=== PATIENT | female | born 1960 | race Caucasian/White ===

== ENCOUNTER 2018-04-01 14:02 | Emergency (ER) | payer OTHER ==
[2018-04-01] MEDS ORDERED: Acetaminophen/HYDROcodone 325-5 MG Tab PO ONE (14:57)
--- NOTE | 2018-04-01 16:00 | EDM.PDOC ---
ED HPI GENERAL MEDICAL PROBLEM - General Chief Complaint: Genitourinary Problem Stated Complaint: PAIN IN VAGINAL AREA Time Seen by Provider: 04/01/18 14:37 Source of Information: Reports: Patient History Limitations: Reports: No Limitations - History of Present Illness INITIAL COMMENTS - FREE TEXT/NARRATIVE: The patient presents with a possible abscess in the genital area. This has been an ongoing problems. She recently popped an abscess and she was put on an antibiotic. She thinks it is coming back. She has pain to the pubic area. She has no fever but she has chills. She has no some abdominal pain. She also has some frequency with urination. Onset: Gradual Duration: Day(s): Location: Reports: Pelvis Quality: Reports: Burning Severity: Moderate Improves with: Reports: None Worsens with: Reports: None Associated Symptoms: Reports: Fever/Chills. Denies: Chest Pain, Cough, Headaches, Nausea/Vomiting, Shortness of Breath Groin Pain Score (Numeric/FACES): 7 - Related Data Allergies Allergy/AdvReac Type Severity Reaction Status Date / Time No Known Allergies Allergy Verified 04/01/18 14:27 Home Meds: Home Meds Doxycycline [Vibramycin] 100 mg PO BID #20 cap 04/01/18 [Rx] Past Medical History Musculoskeletal History: Reports: Arthritis, Back Pain, Chronic, Fibromyalgia Endocrine/Metabolic History: Reports: Hypothyroidism - Past Surgical History GI Surgical History: Reports: Cholecystectomy Female Surgical History: Reports: Oophorectomy Endocrine Surgical History: Reports: Thyroidectomy Social & Family History - Tobacco Use Smoking Status *Q: Current Every Day Smoker Years of Tobacco use: 40 Packs/Tins Daily: 1 - Caffeine Use Caffeine Use: Reports: Coffee - Recreational Drug Use Recreational Drug Use: No ED ROS GENERAL - Review of Systems Review Of Systems: See Below Constitutional: Reports: Chills HEENT: Reports: No Symptoms Respiratory: Reports: No Symptoms Cardiovascular: Reports: No Symptoms Endocrine: Reports: No Symptoms GI/Abdominal: Reports: No Symptoms : Reports: Other (pubic pain) Musculoskeletal: Reports: No Symptoms ED EXAM, GI/ABD - Physical Exam Exam: See Below Exam Limited By: No Limitations General Appearance: Alert, No Apparent Distress Ears: Normal External Exam Nose: Normal Inspection Head: Atraumatic, Normocephalic Neck: Normal Inspection Respiratory/Chest: No Respiratory Distress, Lungs Clear, Normal Breath Sounds Cardiovascular: Regular Rate, Rhythm, No Edema, No Murmur GI/Abdominal Exam: Soft, Non-Tender, No Organomegaly, No Mass (Female) Exam: Other (erythema and some edema to the pubic area) Back Exam: Paraspinal Tenderness Course - Vital Signs Last Recorded V/S: Last Vital Signs Temp 97.5 F 04/01/18 14:23 Pulse 57 L 04/01/18 14:23 Resp 18 04/01/18 14:23 BP 144/87 H 04/01/18 14:23 Pulse Ox 97 04/01/18 14:23 - Orders/Labs/Meds Labs: Laboratory Tests 04/01/18 04/01/18 04/01/18 Range/Units 14:35 15:05 15:05 WBC 8.59 (3.98-10.04) K/mm3 RBC 5.27 H (3.98-5.22) M/mm3 Hgb 14.2 (11.2-15.7) gm/L Hct 44.3 (34.1-44.9) % MCV 84.1 (79.4-94.8) fl MCH 26.9 (25.6-32.2) pg MCHC 32.1 L (32.2-35.5) g/dl RDW Std Deviation 48.5 H (36.4-46.3) fL Plt Count 315 (182-369) K/mm3 MPV 9.6 (9.4-12.3) fl Neut % (Auto) 64.3 (34.0-71.1) % Lymph % (Auto) 25.1 (19.3-51.7) % [place] % (Auto) 9.4 (4.7-12.5) % Eos % (Auto) 1.0 (0.7-5.8) Baso % (Auto) 0.1 (0.1-1.2) % Neut # (Auto) 5.51 (1.56-6.13) K/mm3 Lymph # (Auto) 2.16 (1.18-3.74) K/mm3 Castro # (Auto) 0.81 H (0.24-0.36) K/mm3 Eos # (Auto) 0.09 (0.04-0.36) K/mm3 Baso # (Auto) 0.01 (0.01-0.08) K/mm3 Sodium 142 (136-145) mEq/L Potassium 3.6 (3.5-5.1) mEq/L Chloride 108 H (98-107) mEq/L Carbon Dioxide 25 (21-32) mEq/L Anion Gap 12.6 (5-15) BUN 14 (7-18) mg/dL Creatinine 1.0 (0.55-1.02) mg/dL Est Cr Clr Drug Dosing 53.60 mL/min Estimated GFR (MDRD) 57 (>60) mL/min BUN/Creatinine Ratio 14.0 (14-18) Glucose 99 (74-106) mg/dL Calcium 8.8 (8.5-10.1) mg/dL Total Bilirubin 0.4 (0.2-1.0) mg/dL AST 22 (15-37) U/L ALT 34 (14-59) U/L Alkaline Phosphatase 117 H (46-116) U/L C-Reactive Protein 1.8 H* (<1.0) mg/dL Total Protein 7.2 (6.4-8.2) g/dl Albumin 3.7 (3.4-5.0) g/dl Globulin 3.5 gm/dL Albumin/Globulin Ratio 1.1 (1-2) Urine Color Light yellow (Yellow) Urine Appearance Clear (Clear) Urine pH 7.0 (5.0-8.0) Ur Specific [place] 1.020 (1.005-1.030) Urine Protein Negative (Negative) Urine Glucose (UA) Negative (Negative) Urine Ketones Negative (Negative) Urine Occult Blood Trace-lysed H (Negative) Urine Nitrite Negative (Negative) Urine Bilirubin Negative (Negative) Urine Urobilinogen 1.0 (0.2-1.0) Ur Leukocyte Esterase Negative (Negative) Urine RBC 0-5 (0-5) /hpf Urine WBC Not seen (0-5) /hpf Ur Epithelial Cells 0-5 (0-5) /hpf Urine Bacteria Not seen (FEW) /hpf Urine Mucus Not seen (FEW) /hpf Meds: Medications Discontinued Medications Generic Name Dose Route Start Last Admin Trade Name Freq PRN Reason Stop Dose Admin Hydrocodone Bitart/Acetaminophen 2 tab 04/01/18 14:57 04/01/18 15:05 [place] 325-5 Mg PO 04/01/18 14:58 2 tab ONETIME ONE Administration - Re-Assessments/Exams Free Text/Narrative Re-Assessment/Exam: 04/01/18 15:55 Her UA shows no UTI. Her CBC and CMP look good. Her CRP was slightly elevated at 1.8. She has a cellulitis but no abscess. I will get her on some doxycycline. I did give her some hydrocodone for the pain while she is here. Departure - Departure Time of Disposition: 15:40 Disposition: Home, Self-Care 01 Condition: Good Clinical Impression: Cellulitis of pubic region - Discharge Information Prescriptions: Doxycycline [Vibramycin] 100 mg PO BID #20 cap Referrals: PCP,Not In Area [Primary Care Provider] - Additional Instructions: Take the doxycycline 1 pill 2 times per day for 10 days. Put warm compresses on the area 3 times per day for 5 days. Drink plenty of fluids. Please return if you are worse.
[2018-04-01] MEDS ORDERED: HYDROmorphone 0.5 MG/0.5 ML SYRINGE IM ONE (16:01)
== END 2018-04-01 16:06 | disposition home or self-care (01) ==
LOC: JD.ED 14:02
DX: L03.314 Cellulitis of groin (principal); F17.210 Nicotine dependence, cigarettes, uncomplicated
CPT/HCPCS: 36415; 80053; 81001; 85025; 86140; 96372; 99284; A9270; J1170; 99283

== ENCOUNTER 2018-07-23 10:21 | Emergency (ER) | payer OTHER ==
[2018-07-23] MEDS ORDERED: Sodium Chloride 0.9% 10 ML Syringe FLUSH PRN (10:55)
[2018-07-23] MEDS ORDERED: Prochlorperazine 10 MG/2 ML SDV IVPUSH ONE (10:56)
[2018-07-23] MEDS ORDERED: diphenhydrAMINE 50 MG/ML SDV IVPUSH ONE (10:57)
[2018-07-23] MEDS ORDERED: Ketorolac 30 MG/ML SDV IVPUSH ONE (10:57)
[2018-07-23] MEDS ORDERED: Lidocaine 1% with EPINEPHrine 1:100,000 20 ML MDV INJECT ONE (10:57)
[2018-07-23] MEDS ORDERED: Lidocaine/EPINEPHrine/Tetracaine Soln 1 ML TOP ONE (10:58)
--- NOTE | 2018-07-23 13:16 | EDM.PDOC ---
ED HPI GENERAL MEDICAL PROBLEM - General Chief Complaint: Skin Complaint Stated Complaint: VAGINAL SKIN COMPLAINT Time Seen by Provider: 07/23/18 10:48 Source of Information: Reports: Patient History Limitations: Reports: No Limitations - History of Present Illness INITIAL COMMENTS - FREE TEXT/NARRATIVE: The patient presents with an abscess in her groin area. This has been an ongoing problem for years and she feels like it is infected again. She has no fever, chills, cough, chest pain or abdominal pain. She does have a headache. This has been going on daily for a few weeks. She has a history of migraines but her usual meds are not helping. She has no numbness or weakness. Onset: Gradual Duration: Week(s): Location: Reports: Head, Pelvis Quality: Reports: Sharp Severity: Severe Improves with: Reports: None Worsens with: Reports: None Associated Symptoms: Reports: Headaches. Denies: Confusion, Chest Pain, Fever/ Chills, Nausea/Vomiting, Shortness of Breath Treatments ICE GRINDER: Reports: Other (see below) Other Treatments ICE GRINDER: hot pack Right Groin Pain Score (Numeric/FACES): 7 - Related Data Allergies Allergy/AdvReac Type Severity Reaction Status Date / Time No Known Allergies Allergy Verified 07/23/18 10:36 Home Meds: Home Meds Albuterol [Ventolin HFA] 2 inh PO DAILY PRN MDD 6 07/23/18 [History] Diazepam [Valium] 5 mg PO TID PRN #20 tablet 07/23/18 [Rx] Doxycycline [Vibramycin] 100 mg PO BID #20 cap 07/23/18 [Rx] Escitalopram [Lexapro] 20 mg PO DAILY 07/23/18 [History] Fluticasone/Vilanterol [Breo Ellipta 200-25 Mcg INH] 1 inh PO DAILY 07/23/18 [ History] Hydrocodone/Acetaminophen [Hydrocodon-Acetaminophen 5-325] 1 tab PO QID PRN MDD 4 tabs 07/23/18 [History] Pregabalin [Lyrica] 300 mg PO TID 07/23/18 [History] Terbinafine [LamISIL] 250 mg PO DAILY 07/23/18 [History] Topiramate 100 mg PO BID PRN MDD 2 tabs 07/23/18 [History] Past Medical History Cardiovascular History: Reports: Hypertension Respiratory History: Reports: Asthma, COPD, SOB Musculoskeletal History: Reports: Arthritis, Back Pain, Chronic, Fibromyalgia Endocrine/Metabolic History: Reports: Hypothyroidism - Past Surgical History GI Surgical History: Reports: Cholecystectomy Female Surgical History: Reports: Oophorectomy Endocrine Surgical History: Reports: Thyroidectomy Social & Family History - Tobacco Use Smoking Status *Q: Current Every Day Smoker Years of Tobacco use: 45 Packs/Tins Daily: 0.5 Second Hand Smoke Exposure: No - Caffeine Use Caffeine Use: Reports: Coffee ED ROS GENERAL - Review of Systems Review Of Systems: See Below Constitutional: Reports: No Symptoms HEENT: Reports: No Symptoms Respiratory: Reports: No Symptoms Cardiovascular: Reports: No Symptoms Endocrine: Reports: No Symptoms GI/Abdominal: Reports: No Symptoms : Reports: Other (Pupic abscess with pain and swelling) Musculoskeletal: Reports: No Symptoms Neurological: Reports: Headache ED EXAM, SKIN/RASH Exam: See Below Exam Limited By: No Limitations General Appearance: Alert, No Apparent Distress Ears: Normal External Exam Nose: Normal Inspection Head: Atraumatic, Normocephalic Neck: Normal Inspection Respiratory/Chest: No Respiratory Distress, Lungs Clear, Normal Breath Sounds Cardiovascular: Regular Rate, Rhythm, No Edema, No Murmur GI/Abdominal: Soft, Non-Tender, No Organomegaly, No Mass (Female) Exam: Other (Pubic abscess with arythema,edema and fluctuance) Back Exam: Normal Inspection Extremities: Normal Inspection ED SKIN PROCEDURES - I&D Site: pubis Skin Prep: Other (chlorprep) Local Anesthesia: Lidocaine: 1% with EPI (and let) Area Incised With: 11 Blade Drainage: Purulent, Bloody, Moderate Amount Probed to Break Up Loculations: Yes Packed With: 1/4 in. Iodoform Complications: No Progress/Comments: Cultures were obtained Course - Vital Signs Last Recorded V/S: Last Vital Signs Temp 96.6 F 07/23/18 10:28 Pulse 69 07/23/18 10:28 Resp 20 07/23/18 10:28 BP 155/87 H 07/23/18 10:28 Pulse Ox 97 07/23/18 10:28 - Orders/Labs/Meds Orders: Active Orders 24 hr Category Date Time Status Peripheral IV Care [RC] . DIRECTED Care 07/23/18 10:56 Active Head wo Cont [CT] Stat Exams 07/23/18 10:58 Taken Sodium Chloride 0.9% [Saline Flush] Med 07/23/18 10:55 Active 10 ml FLUSH ASDIRECTED PRN ED Antiemetic Medication Reflex [OM.PC] Stat Oth 07/23/18 10:55 Ordered Peripheral IV Insertion Adult [OM.PC] Stat Ot 07/23/18 10:55 Ordered Medication Orders Sodium Chloride (Saline Flush) 10 ml FLUSH ASDIRECTED PRN PRN Reason: Keep Vein Open Last Admin: 07/23/18 11:12 Dose: 10 ml Labs: Laboratory Tests 07/23/18 07/23/18 Range/Units 11:45 11:45 WBC 9.30 (3.98-10.04) K/mm3 RBC 5.23 H (3.98-5.22) M/mm3 Hgb 14.1 (11.2-15.7) gm/L Hct 44.4 (34.1-44.9) % MCV 84.9 (79.4-94.8) fl MCH 27.0 (25.6-32.2) pg MCHC 31.8 L (32.2-35.5) g/dl RDW Std Deviation 49.8 H (36.4-46.3) fL Plt Count 297 (182-369) K/mm3 MPV 9.4 (9.4-12.3) fl Neut % (Auto) 72.4 H (34.0-71.1) % Lymph % (Auto) 17.7 L (19.3-51.7) % [place] % (Auto) 8.2 (4.7-12.5) % Eos % (Auto) 1.4 (0.7-5.8) Baso % (Auto) 0.2 (0.1-1.2) % Neut # (Auto) 6.73 H (1.56-6.13) K/mm3 Lymph # (Auto) 1.65 (1.18-3.74) K/mm3 [place] # (Auto) 0.76 H (0.24-0.36) K/mm3 Eos # (Auto) 0.13 (0.04-0.36) K/mm3 Baso # (Auto) 0.02 (0.01-0.08) K/mm3 Sodium 140 (136-145) mEq/L Potassium 4.0 (3.5-5.1) mEq/L Chloride 107 (98-107) mEq/L Carbon Dioxide 26 (21-32) mEq/L Anion Gap 11.0 (5-15) BUN 15 (7-18) mg/dL Creatinine 1.2 H (0.55-1.02) mg/dL Est Cr Clr Drug Dosing 44.13 mL/min Estimated GFR (MDRD) 46 (>60) mL/min BUN/Creatinine Ratio 12.5 L (14-18) Glucose 95 (74-106) mg/dL Calcium 8.6 (8.5-10.1) mg/dL Total Bilirubin 0.4 (0.2-1.0) mg/dL AST 16 (15-37) U/L ALT 20 (14-59) U/L Alkaline Phosphatase 137 H (46-116) U/L C-Reactive Protein 3.4 H* (<1.0) mg/dL Total Protein 7.5 (6.4-8.2) g/dl Albumin 3.6 (3.4-5.0) g/dl Globulin 3.9 gm/dL Albumin/Globulin Ratio 0.9 L (1-2) Meds: Medications Generic Name Dose Route Start Last Admin Trade Name Freq PRN Reason Stop Dose Admin Sodium Chloride 10 ml 07/23/18 10:55 07/23/18 11:12 Saline Flush FLUSH 10 ml ASDIRECTED PRN Administration Keep Vein Open Discontinued Medications Generic Name Dose Route Start Last Admin Trade Name Freq PRN Reason Stop Dose Admin Diazepam 5 mg 07/23/18 12:36 07/23/18 12:43 Valium IVPUSH 07/23/18 12:37 5 mg ONETIME ONE Administration Diphenhydramine HCl 50 mg 07/23/18 10:57 07/23/18 11:19 Benadryl IVPUSH 07/23/18 10:58 50 mg ONETIME ONE Administration Ketorolac Tromethamine 30 mg 07/23/18 10:57 07/23/18 11:21 Toradol IVPUSH 07/23/18 10:58 30 mg ONETIME ONE Administration Lidocaine/Epinephrine 20 ml 07/23/18 10:57 07/23/18 11:12 Xylocaine 1% With Epinephrine 1:100,000 INJECT 07/23/18 10:58 20 ml ONETIME ONE Administration Lidocaine/Tetracaine 1 ml 07/23/18 10:58 07/23/18 11:13 Let Alejandro TOP 07/23/18 10:59 1 ml ONETIME ONE Administration Prochlorperazine Edisylate 10 mg 07/23/18 10:56 07/23/18 11:17 Compazine IVPUSH 07/23/18 10:57 10 mg ONETIME ONE Administration - Re-Assessments/Exams Free Text/Narrative Re-Assessment/Exam: 07/23/18 13:15 I ordered an IV saline lock, compazine 10mg IV, toradol 30mg IV, benadryl 50mg IV, labs and a CT of her head. The CT did not show any acute changes. Her CBC looks good. Her creatinine was slightly elevated at 1.2. Her CRP was elevated at 3.4. 07/23/18 13:17 I I&D the abscess. I will get her on an antibiotic and while she was here she had stomach muscle cramps. I gave her some valium and that helped. Her headache is gone now. Departure - Departure Time of Disposition: 13:20 Disposition: Home, Self-Care 01 Condition: Good Clinical Impression: Cellulitis and abscess of trunk, Spasm of abdominal muscles Headache Qualifiers: Headache type: unspecified Headache chronicity pattern: chronic headache Intractability: not intractable Qualified Code(s): R51 - Headache - Discharge Information *PRESCRIPTION DRUG MONITORING PROGRAM REVIEWED*: No *COPY OF PRESCRIPTION DRUG MONITORING REPORT IN PATIENT [place]: No Prescriptions: Diazepam [Valium] 5 mg PO TID PRN #20 tablet PRN Reason: Pain Doxycycline [Vibramycin] 100 mg PO BID #20 cap Referrals: PCP,None [Primary Care Provider] - Royce Dwyer MD [Physician] - 1 Week Additional Instructions: Take the doxycycline 2 times per day for 10 days. Take the valium 3 times per day as needed for stomach muscle contractions. Follow up with Dr Dwyer. Please return if you are worse. - My Orders Last 24 Hours: My Active Orders 07/23/18 10:55 Sodium Chloride 0.9% [Saline Flush] 10 ml FLUSH ASDIRECTED PRN ED Antiemetic Medication Reflex [OM.PC] Stat Peripheral IV Insertion Adult [OM.PC] Stat 07/23/18 10:56 Peripheral IV Care [RC] . DIRECTED 07/23/18 10:58 Head wo Cont [CT] Stat - Assessment/Plan Last 24 Hours: My Active Orders 07/23/18 10:55 Sodium Chloride 0.9% [Saline Flush] 10 ml FLUSH ASDIRECTED PRN ED Antiemetic Medication Reflex [OM.PC] Stat Peripheral IV Insertion Adult [OM.PC] Stat 07/23/18 10:56 Peripheral IV Care [RC] . DIRECTED 07/23/18 10:58 Head wo Cont [CT] Stat
--- NOTE | 2018-07-25 07:13 | CT ---
Head CT Technique: Multiple axial sections through the brain were obtained. Intravenous contrast was not utilized. Comparison: No prior intracranial imaging. Findings: Ventricles along with basal cisterns and sulci over the convexities are within normal limits for the patient's age. No abnormal parenchymal densities are seen. No evidence of intracranial hemorrhage. No midline shift or mass effect is seen. Visualized sinuses are clear. No acute calvarial abnormality is appreciated. Impression: 1. Nothing acute is seen on noncontrast head CT study. Diagnostic code #1 I agree with preliminary report from [facility], finalized on 07/23/18, 1:25 PM Central Time
== END 2018-07-23 13:40 | disposition home or self-care (01) ==
LOC: JD.ED 10:21
DX: L02.214 Cutaneous abscess of groin (principal); L03.314 Cellulitis of groin; M62.838 Other muscle spasm; R51 Headache; I10 Essential (primary) hypertension; E03.9 Hypothyroidism, unspecified; Z79.899 Other long term (current) drug therapy; F17.210 Nicotine dependence, cigarettes, uncomplicated
CPT/HCPCS: 10061; 36415; 70450; 80053; 85025; 86140; 87075; 87205; 96374; 96375; 99284; A9270; J0780; J1200; J1885; J3360; J7050; 10060

== ENCOUNTER 2019-01-20 15:02 | Emergency (ER) | payer MEDICARE, MEDICAID ==
--- NOTE | 2019-01-20 15:21 | EDM.PDOC ---
ED HPI GENERAL MEDICAL PROBLEM - General Chief Complaint: General Stated Complaint: NAUSEA Time Seen by Provider: 01/20/19 15:20 Source of Information: Reports: Patient History Limitations: Reports: No Limitations - History of Present Illness INITIAL COMMENTS - FREE TEXT/NARRATIVE: The patient presents with a cough, congestion, runny nose, fever, chills, headache and neck pain. This has been an on going problem for over the month. She has been trying over the counter meds but nothing is helping. She has COPD and she has been using her inhalers. She has lost her voice with the above symptoms. She has a sore throat. She has no chest pain. She does have shortness of breath. She has nausea and vomiting. She has some diarrhea at times. She has no dysuria. Onset: Gradual Duration: Week(s): (6) Location: Reports: Head, Neck Quality: Reports: Sharp Severity: Moderate Improves with: Reports: None Worsens with: Reports: None Associated Symptoms: Reports: Cough, Fever/Chills, Headaches, Nausea/Vomiting, Shortness of Breath. Denies: Chest Pain Headache Pain Score (Numeric/FACES): 7 - Related Data Allergies Allergy/AdvReac Type Severity Reaction Status Date / Time No Known Allergies Allergy Verified 07/23/18 10:36 Home Meds: Home Meds Albuterol [Ventolin HFA] 2 inh PO DAILY PRN MDD 6 07/23/18 [History] Doxycycline [Vibramycin] 100 mg PO BID #20 cap 07/23/18 [Rx] Escitalopram [Lexapro] 20 mg PO DAILY 07/23/18 [History] Fluticasone/Vilanterol [Breo Ellipta 200-25 Mcg INH] 1 inh PO DAILY 07/23/18 [ History] Pregabalin [Lyrica] 300 mg PO TID 07/23/18 [History] Terbinafine [LamISIL] 250 mg PO DAILY 07/23/18 [History] Topiramate 100 mg PO BID PRN MDD 2 tabs 07/23/18 [History] Azithromycin [Zithromax] 250 mg PO DAILY #6 tab 01/20/19 [Rx] Codeine/Promethazine [Phenergan with Codeine] 5 - 10 ml PO Q6HR PRN #240 ml [Rx] Cyclobenzaprine [Flexeril] 10 mg PO TID PRN #20 tab 01/20/19 [Rx] Pantoprazole Sodium [Protonix] 40 mg PO DAILY 01/20/19 [History] Past Medical History Cardiovascular History: Reports: Hypertension Respiratory History: Reports: Asthma, COPD, SOB Musculoskeletal History: Reports: Arthritis, Back Pain, Chronic, Fibromyalgia Endocrine/Metabolic History: Reports: Hypothyroidism - Past Surgical History GI Surgical History: Reports: Cholecystectomy Female Surgical History: Reports: Oophorectomy Endocrine Surgical History: Reports: Thyroidectomy Social & Family History - Tobacco Use Smoking Status *Q: Current Every Day Smoker Years of Tobacco use: 40 Packs/Tins Daily: 0.2 - Caffeine Use Caffeine Use: Reports: Coffee, Soda - Recreational Drug Use Recreational Drug Use: No ED ROS GENERAL - Review of Systems Review Of Systems: See Below Constitutional: Reports: Fever, Chills HEENT: Reports: Other (Congestion and runny nose) Respiratory: Reports: Shortness of Breath, Cough Cardiovascular: Reports: No Symptoms Endocrine: Reports: No Symptoms GI/Abdominal: Reports: Diarrhea, Nausea, Vomiting. Denies: Abdominal Pain : Reports: No Symptoms Musculoskeletal: Reports: No Symptoms ED EXAM, GENERAL - Physical Exam Exam: See Below Exam Limited By: No Limitations General Appearance: Alert, No Apparent Distress Ears: Normal External Exam Nose: Normal Inspection Throat/Mouth: Normal Inspection Head: Atraumatic, Normocephalic Neck: Tender Lateral Respiratory/Chest: No Respiratory Distress, Lungs Clear, Normal Breath Sounds Cardiovascular: Regular Rate, Rhythm, No Edema, No Murmur GI/Abdominal: Soft, Non-Tender, No Organomegaly, No Mass Back Exam: Normal Inspection Extremities: Normal Inspection Neurological: Alert, Oriented, No Motor/Sensory Deficits Course - Vital Signs Last Recorded V/S: Last Vital Signs Temp 97.5 F 01/20/19 15:16 Pulse 89 01/20/19 15:16 Resp 20 01/20/19 15:16 BP 153/86 H 01/20/19 15:16 Pulse Ox 95 01/20/19 15:50 - Orders/Labs/Meds Orders: Active Orders 24 hr Category Date Time Status Cardiac Monitoring [RC] . DIRECTED Care 01/20/19 15:32 Active Oxygen Therapy [RC] PRN Care 01/20/19 15:32 Active Peripheral IV Care [RC] . DIRECTED Care 01/20/19 15:33 Active RT Aerosol Therapy [RC] ASDIRECTED Care 01/20/19 15:34 Active Chest 2V [CR] Stat Exams 01/20/19 15:33 Taken Sodium Chloride 0.9% [Normal Saline] 1,000 ml Med 01/20/19 15:45 Active IV ASDIRECTED Sodium Chloride 0.9% [Saline Flush] Med 01/20/19 15:32 Active 10 ml FLUSH ASDIRECTED PRN Peripheral IV Insertion Adult [OM.PC] Stat Oth 01/20/19 15:32 Ordered Medication Orders Sodium Chloride (Normal Saline) 1,000 mls @ 125 mls/hr IV ASDIRECTED PRATIBHA Last Admin: 01/20/19 15:57 Dose: 125 mls/hr Sodium Chloride (Saline Flush) 10 ml FLUSH ASDIRECTED PRN PRN Reason: Keep Vein Open Last Admin: 01/20/19 15:59 Dose: 10 ml Labs: Laboratory Tests 01/20/19 01/20/19 Range/Units 15:42 15:42 WBC 10.71 H (3.98-10.04) K/mm3 RBC 5.59 H (3.98-5.22) M/mm3 Hgb 14.6 (11.2-15.7) gm/L Hct 45.6 H (34.1-44.9) % MCV 81.6 (79.4-94.8) fl MCH 26.1 (25.6-32.2) pg MCHC 32.0 L (32.2-35.5) g/dl RDW Std Deviation 50.3 H (36.4-46.3) fL Plt Count 376 H (182-369) K/mm3 MPV 9.5 (9.4-12.3) fl Neut % (Auto) 65.9 (34.0-71.1) % Lymph % (Auto) 22.5 (19.3-51.7) % [place] % (Auto) 9.6 (4.7-12.5) % Eos % (Auto) 1.4 (0.7-5.8) Baso % (Auto) 0.3 (0.1-1.2) % Neut # (Auto) 7.06 H (1.56-6.13) K/mm3 Lymph # (Auto) 2.41 (1.18-3.74) K/mm3 [place] # (Auto) 1.03 H (0.24-0.36) K/mm3 Eos # (Auto) 0.15 (0.04-0.36) K/mm3 Baso # (Auto) 0.03 (0.01-0.08) K/mm3 Sodium 147 H (136-145) mEq/L Potassium 3.7 (3.5-5.1) mEq/L Chloride 111 H (98-107) mEq/L Carbon Dioxide 24 (21-32) mEq/L Anion Gap 15.7 H (5-15) BUN 15 (7-18) mg/dL Creatinine 1.1 H (0.55-1.02) mg/dL Est Cr Clr Drug Dosing 48.14 mL/min Estimated GFR (MDRD) 51 (>60) mL/min BUN/Creatinine Ratio 13.6 L (14-18) Glucose 104 (74-106) mg/dL Calcium 8.4 L (8.5-10.1) mg/dL Total Bilirubin 0.3 (0.2-1.0) mg/dL AST 16 (15-37) U/L ALT 25 (14-59) U/L Alkaline Phosphatase 144 H (46-116) U/L C-Reactive Protein 2.3 H* (<1.0) mg/dL Total Protein 7.4 (6.4-8.2) g/dl Albumin 3.5 (3.4-5.0) g/dl Globulin 3.9 gm/dL Albumin/Globulin Ratio 0.9 L (1-2) Meds: Medications Generic Name Dose Route Start Last Admin Trade Name Freq PRN Reason Stop Dose Admin Sodium Chloride 1,000 mls @ 125 mls/hr 01/20/19 15:45 01/20/19 15:57 Normal Saline IV 125 mls/hr ASDIRECTED PRATIBHA Administration Sodium Chloride 10 ml 01/20/19 15:32 01/20/19 15:59 Saline Flush FLUSH 10 ml ASDIRECTED PRN Administration Keep Vein Open Discontinued Medications Generic Name Dose Route Start Last Admin Trade Name Freq PRN Reason Stop Dose Admin Albuterol/Ipratropium 3 ml 01/20/19 15:34 01/20/19 15:49 Duoneb 3.0-0.5 Mg/3 Ml NEB 01/20/19 15:35 3 ml ONETIME ONE Administration Hydromorphone HCl 1 mg 01/20/19 16:29 01/20/19 16:43 Dilaudid IVPUSH 01/20/19 16:30 1 mg ONETIME ONE Administration Ketorolac Tromethamine 30 mg 01/20/19 15:34 01/20/19 15:44 Toradol IVPUSH 01/20/19 15:35 30 mg ONETIME ONE Administration Ondansetron HCl 4 mg 01/20/19 15:39 01/20/19 15:44 Zofran IVPUSH 01/20/19 15:40 4 mg ONETIME ONE Administration - Re-Assessments/Exams Free Text/Narrative Re-Assessment/Exam: 01/20/19 15:42 I ordered an IV NS at 125mL/hr, zofran 4mg IV, toradol 30mg IV, duoneb, CT of her head, CXR and labs. 01/20/19 17:20 Her WBC was elevated at 10.71. Her Na was elevated at 147. Her anion gap is elevated at 15.7. Her creatinine was slightly elevated at 1.1. Her CRP was elevated. Her CT shows minimal sinus findings. Small finding within the periphery of the left cerebellar hemisphere which is felt to be old and therefore incidental. Nothing acute is appreciated on noncontrast head CT exam. Her CXR shows no infiltrate. She has bronchitis and sinusitis. I will get her on some doxycycline and something for her neck and cough. Departure - Departure Time of Disposition: 17:25 Disposition: Home, Self-Care 01 Condition: Good Clinical Impression: Bronchitis, Neck pain Sinusitis Qualifiers: Sinusitis location: unspecified location Chronicity: acute Recurrence: non- recurrent Qualified Code(s): J01.90 - Acute sinusitis, unspecified - Discharge Information *PRESCRIPTION DRUG MONITORING PROGRAM REVIEWED*: No *COPY OF PRESCRIPTION DRUG MONITORING REPORT IN PATIENT LAVERN: No Prescriptions: Codeine/Promethazine [Phenergan with Codeine] 5 - 10 ml PO Q6HR PRN #240 ml PRN Reason: Cough Azithromycin [Zithromax] 250 mg PO DAILY #6 tab Cyclobenzaprine [Flexeril] 10 mg PO TID PRN #20 tab PRN Reason: Pain Referrals: Kaylin Peterson MD [Primary Care Provider] - 1 Week Forms: ED Department Discharge Additional Instructions: Use the albuterol inhaler 2 puffs every 6 hours as needed for shortness of breath. Take the zithromax 2 pills on day 1 and 1 pill on day 2 through 5. Take the flexeril as needed for neck pain. Take the phenergan with codeine as needed for cough. Follow up with your doctor in 1 week. Please return if you are worse. - My Orders Last 24 Hours: My Active Orders 01/20/19 15:32 Cardiac Monitoring [RC] . DIRECTED Oxygen Therapy [RC] PRN Sodium Chloride 0.9% [Saline Flush] 10 ml FLUSH ASDIRECTED PRN Peripheral IV Insertion Adult [OM.PC] Stat 01/20/19 15:33 Peripheral IV Care [RC] . DIRECTED Chest 2V [CR] Stat 01/20/19 15:34 RT Aerosol Therapy [RC] ASDIRECTED 01/20/19 15:45 Sodium Chloride 0.9% [Normal Saline] 1,000 ml IV ASDIRECTED - Assessment/Plan Last 24 Hours: My Active Orders 01/20/19 15:32 Cardiac Monitoring [RC] . DIRECTED Oxygen Therapy [RC] PRN Sodium Chloride 0.9% [Saline Flush] 10 ml FLUSH ASDIRECTED PRN Peripheral IV Insertion Adult [OM.PC] Stat 01/20/19 15:33 Peripheral IV Care [RC] . DIRECTED Chest 2V [CR] Stat 01/20/19 15:34 RT Aerosol Therapy [RC] ASDIRECTED 01/20/19 15:45 Sodium Chloride 0.9% [Normal Saline] 1,000 ml IV ASDIRECTED
[2019-01-20] MEDS ORDERED: Sodium Chloride 0.9% 10 ML Syringe FLUSH PRN (15:32)
[2019-01-20] MEDS ORDERED: Albuterol/Ipratropium 3.0-0.5 MG/3 ML Neb Soln NEB ONE (15:34)
[2019-01-20] MEDS ORDERED: Ketorolac 30 MG/ML SDV IVPUSH ONE (15:34)
[2019-01-20] MEDS ORDERED: Ondansetron 4 MG/2 ML SDV IVPUSH ONE (15:39)
[2019-01-20] MEDS ORDERED: Sodium Chloride 0.9% 1,000 ML IV SCH (15:45)
--- NOTE | 2019-01-20 16:17 | CT ---
Head CT Technique: Multiple axial sections through the brain were obtained. Intravenous contrast was not utilized. Comparison: Prior head CT exam of 07/23/18. Findings: Ventricles along with basal cisterns and sulci over the convexities appear within normal limits. Small low density finding is seen within the periphery of the left cerebellar hemisphere which is well defined and unchanged from previous exam. No other abnormal parenchymal densities are seen. No evidence of intracranial hemorrhage. No midline shift or mass effect is seen. Bone window settings were reviewed which shows no acute calvarial abnormality. Minimal area of mucosal thickening is seen within a partially visualized right maxillary sinus. Mild mucosal thickening is also noted within the ethmoid sinuses. Impression: 1. Minimal sinus findings. 2. Small finding within the periphery of the left cerebellar hemisphere which is felt to be old and therefore incidental. 3. Nothing acute is appreciated on noncontrast head CT exam. Diagnostic code #2
[2019-01-20] MEDS ORDERED: HYDROmorphone 1 MG/ML Syringe IVPUSH ONE (16:29)
--- NOTE | 2019-01-21 09:47 | CR ---
Chest: Two views of the chest were obtained. Comparison: No previous chest x-ray. Heart size is normal. Tortuous thoracic aorta is seen. Lungs are clear. Bony structures show scattered degenerative endplate spurring within the lower thoracic spine. Impression: 1. Nothing acute is seen. Diagnostic code #2
== END 2019-01-21 17:43 | disposition home or self-care (01) ==
LOC: JD.ED 15:02
DX: J01.90 Acute sinusitis, unspecified (principal); J40 Bronchitis, not specified as acute or chronic; M54.2 Cervicalgia; I10 Essential (primary) hypertension; F17.210 Nicotine dependence, cigarettes, uncomplicated; Z79.899 Other long term (current) drug therapy
CPT/HCPCS: 36415; 70450; 71046; 80053; 85025; 86140; 87804; 94640; 96361; 96374; 96375; 99284; J1170; J1885; J2405; J7040; 99283; J7620-GY

== ENCOUNTER 2019-05-02 18:50 | Emergency (ER) | payer MEDICARE, MEDICAID ==
[2019-05-02] MEDS ORDERED: Orphenadrine 100 MG Tab.ER PO STA (20:33)
--- NOTE | 2019-05-02 20:36 | EDM.PDOC ---
ED HPI GENERAL MEDICAL PROBLEM - General Chief Complaint: Back Pain or Injury Stated Complaint: BACK PAIN/SOB Time Seen by Provider: 05/02/19 20:00 Source of Information: Reports: Patient, Family (), RN Notes Reviewed History Limitations: Reports: No Limitations - History of Present Illness INITIAL COMMENTS - FREE TEXT/NARRATIVE: The patient states that she has a history of low back pain since 2010. She is unable to say exactly why she has back pain - whether it is due to arthritis versus herniated and vertebral discs, etc., only that she has a bad back. Her chronic back pain is managed by Kelsey Baca (sp?) out of [facility]. The patient states that she is treated with Flexeril, which, for reasons unclear , she did not take today or yesterday. The patient now presents to the ED stating that she has an exacerbation of her chronic low back pain starting this evening, after moving furniture for the past 2 days. She denies any specific injury, such as a fall or being struck. She states that her low back pain is worse if she takes a deep breath, which is new for her. She states that the pain radiates to her left hip, which is worse with movement, although the patient also notes that she has chronic left hip pain due to arthritis. The patient is unable to say why, if she has chronic low back pain, she was moving furniture for 2 days. The patient's PCP is Dr. Kaylin Peterson. Her pain numerical analysis group manager is Kelsey Baca (sp?) at [facility]. Lower Back Pain Score (Numeric/FACES): 8 - Related Data Allergies Allergy/AdvReac Type Severity Reaction Status Date / Time No Known Allergies Allergy Verified 07/23/18 10:36 Home Meds: Home Meds Albuterol [Ventolin HFA] 2 inh PO DAILY PRN MDD 6 07/23/18 [History] Escitalopram [Lexapro] 20 mg PO DAILY 07/23/18 [History] Fluticasone/Vilanterol [Breo Ellipta 200-25 Mcg INH] 1 inh PO DAILY 07/23/18 [ History] Pregabalin [Lyrica] 300 mg PO TID 07/23/18 [History] Terbinafine [LamISIL] 250 mg PO DAILY 07/23/18 [History] Topiramate 100 mg PO BID PRN MDD 2 tabs 07/23/18 [History] Pantoprazole Sodium [Protonix] 40 mg PO DAILY 01/20/19 [History] Orphenadrine [Norflex] 1 tab PO Q12H PRN #14 tab.er 05/02/19 [Rx] Past Medical History Cardiovascular History: Reports: High Cholesterol (untreated), Hypertension ( untreated) Respiratory History: Reports: COPD (suspected, not tested), SOB Gastrointestinal History: Reports: GERD, PUD Musculoskeletal History: Reports: Arthritis, Back Pain, Chronic (x 2011) Neurological History: Reports: Neuropathy, Peripheral Psychiatric History: Reports: Anxiety (untreated), Depression, Other (See Below ) (Fibromyalgia) Endocrine/Metabolic History: Reports: Hypothyroidism (following thyroidectomy for thyroid CA), Obesity/BMI 30+ Oncologic (Cancer) History: Reports: Cervix (s/p hysterectomy), Thyroid (s/p thyroidectomy) - Past Surgical History GI Surgical History: Reports: Cholecystectomy (1999), EGD (x 1). Denies: Colonoscopy Female Surgical History: Reports: Hysterectomy (partial, 1999), Oophorectomy (right) Endocrine Surgical History: Reports: Thyroidectomy Social & Family History - Family History Family Medical History: Noncontributory - Tobacco Use Smoking Status *Q: Current Every Day Smoker Years of Tobacco use: 45 Packs/Tins Daily: 0.4 Packs/Tins Daily Comment: Down from 1 ppd - Caffeine Use Caffeine Use: Reports: Coffee, Tea - Alcohol Use Alcohol Use History: No - Recreational Drug Use Recreational Drug Use: Yes Drug Use in Last 12 Months: No Recreational Drug Type: Reports: Marijuana/Hashish (last smoked around 1994) - Living Situation & Occupation Living situation: Reports: , with Spouse, with Family (Son) Occupation: Unemployed ED ROS GENERAL - Review of Systems Review Of Systems: ROS reveals no pertinent complaints other than HPI. ED EXAM,LOWER BACK PAIN/INJURY - Physical Exam Exam: See Below Exam Limited By: No Limitations General Appearance: Alert, WD/WN, No Apparent Distress Eye Exam: Bilateral Eye: EOMI, Normal Inspection Ears: Normal External Exam, Hearing Grossly Normal Nose: Normal Inspection Throat/Mouth: Normal Inspection, Normal Lips, Normal Voice, No Airway Compromise Head: Atraumatic, Normocephalic Neck: Normal Inspection, Full Range of Motion Respiratory/Chest: No Respiratory Distress, Lungs Clear, Normal Breath Sounds, No Accessory Muscle Use Cardiovascular: Normal Peripheral Pulses, Regular Rate, Rhythm, No Gallop, No JVD, No Murmur, No Rub GI/Abdominal: Normal Bowel Sounds, Soft, Non-Tender, No Organomegaly, No Distention, No Abnormal Bruit, No Mass, Other (Obese) (Female) Exam: Deferred Rectal (Female) Exam: Deferred Back Exam: Other (The patient indicates that her pain is felt in the midline lower lumbar and sacral area. No visible abnormality to the patient's lower back , such as swelling, erythema, ecchymosis, or abrasion. She reports extreme tenderness to palpation along the entire lumbar spinous processes. Straight leg raise is limited to 45 bilaterally, limited by posterior thigh tightness, but no radicular symptoms. Standing, the patient is able to flex her spine to greater than 90, and extend to about 10. She is able to tilt her spine to 30 bilaterally. She is able to twist her spine to 30 bilaterally. Unilateral knee bend is normal bilaterally.) Extremities: Normal Inspection, Normal Range of Motion, Normal Capillary Refill Neurological: Alert, Normal Dorsiflexion, Normal Plantar Flexion, No Motor/ Sensory Deficits, Oriented x 3 Psychiatric: Normal Affect Skin Exam: Warm, Dry, Intact, Normal Color, No Rash Course - Vital Signs Last Recorded V/S: Last Vital Signs Temp 36.6 C 05/02/19 19:03 Pulse 71 05/02/19 19:03 Resp 18 05/02/19 19:03 BP 157/93 H 05/02/19 19:03 Pulse Ox 98 05/02/19 19:03 - Orders/Labs/Meds Meds: Medications Discontinued Medications Generic Name Dose Route Start Last Admin Trade Name Freq PRN Reason Stop Dose Admin Orphenadrine Citrate 100 mg 05/02/19 20:33 05/02/19 20:50 Norflex PO 05/02/19 20:34 100 mg ONETIME STA Administration - Re-Assessments/Exams Free Text/Narrative Re-Assessment/Exam: 05/02/19 20:31 The patient is clearly over-exaggerating the degree of her pain. For example, she reports extreme tenderness to palpation of all of her lumbar spinous processes, which would not be possible unless she had a direct injury to her spinous processes. She was limited to straight leg raise at 45 bilaterally, yet is able to flex to 90 when standing. It is unfortunate that she is over- exaggerating, because it limits my ability to accurately assess the cause and severity of her pain, nevertheless, there is no suggestion that the patient's current lower back pain is due to a herniated intervertebral disc, as there are no radicular symptoms. She appears to have a muscle spasm, which, based on her current medications prescribed by her pain numerical analysis group manager in [place], is likely what she is chronically suffering from. I recommended that we switch her from Flexeril, which is not really a muscle relaxant, to Norflex, a newer-generation muscle relaxant which works on the muscle fibers. I would ordinarily recommend that she take ibuprofen, however, the patient states that she can't take ibuprofen, as it is hard on her stomach. I am therefore recommending over-the- counter acetaminophen. I am not recommending an opioid, as one of the side effects of opioids is muscle spasm. Departure - Departure Time of Disposition: 20:36 Disposition: Home, Self-Care 01 Condition: Good Clinical Impression: Back muscle spasm - Discharge Information *PRESCRIPTION DRUG MONITORING PROGRAM REVIEWED*: Not Applicable *COPY OF PRESCRIPTION DRUG MONITORING REPORT IN PATIENT LAVERN: Not Applicable Prescriptions: Orphenadrine [Norflex] 1 tab PO Q12H PRN #14 tab.er PRN Reason: Muscle Spasm Instructions: Muscle Cramps and Spasms, [id number] Referrals: Kaylin Peterson MD [Primary Care Provider] - Forms: ED Department Discharge Additional Instructions: You were seen in the emergency room for an exacerbation of your chronic low back pain after moving furniture. Based on your history and physical examination, your back pain is due to a muscle spasm, not a herniated intervertebral disc. You have been started on the muscle relaxant Norflex. A prescription for Norflex has been sent to the [facility], located in the [place] store. Take one tablet of Norflex every 12 hours, starting tomorrow morning, Wednesday , 05/03/2019, as prescribed. If you take Norflex, do not also take Flexeril. In addition to Norflex, we recommend that you take [id number] acetaminophen (Tylenol) as directed on the label. It is important that you stay active. Swimming is best, but walking is good, as well. Follow-up with your pain numerical analysis group manager in [place] at the next available appointment. If any other problems, please do not hesitate to return to the ER.
== END 2019-05-02 20:58 | disposition home or self-care (01) ==
LOC: JD.ED 18:50
DX: M62.830 Muscle spasm of back (principal); I10 Essential (primary) hypertension; E03.9 Hypothyroidism, unspecified; E78.00 Pure hypercholesterolemia, unspecified; J44.9 Chronic obstructive pulmonary disease, unspecified; K21.9 Gastro-esophageal reflux disease without esophagitis; F41.9 Anxiety disorder, unspecified; F32.9 Major depressive disorder, single episode, unspecified; F17.210 Nicotine dependence, cigarettes, uncomplicated; Z79.899 Other long term (current) drug therapy
CPT/HCPCS: 99283; A9270

== ENCOUNTER 2020-07-08 12:27 | Emergency (ER) | payer MEDICARE, MEDICAID ==
[2020-07-08] MEDS ORDERED: Penicillin V Potassium 500 MG Tab PO ONE (13:11)
[2020-07-08] MEDS ORDERED: Ketorolac 60 MG/2 ML SDV IM ONE (13:11)
[2020-07-08] MEDS ORDERED: Acetaminophen/Codeine 300-30 MG Tab PO ONE (13:12)
--- NOTE | 2020-07-08 13:21 | EDM.PDOC ---
ED HPI GENERAL MEDICAL PROBLEM - General Chief Complaint: ENT Problem Stated Complaint: DENTAL COMPLAINT Time Seen by Provider: 07/08/20 12:54 Source of Information: Reports: Patient History Limitations: Reports: No Limitations - History of Present Illness INITIAL COMMENTS - FREE TEXT/NARRATIVE: Patient is a 60-year-old female who presents to the emergency department with complaints of a broken tooth and dental pain on her left lower jaw. She states his tooth broke and upper months ago, however she started developing pain in the area over the last few days. She denies any fever, chills, nausea, or vomiting. She has not seen a dentist for the tooth thus far. Right Lower Tooth/Teeth Pain Score (Numeric/FACES): 10 - Related Data Allergies Allergy/AdvReac Type Severity Reaction Status Date / Time lidocaine Allergy Severe Hives Verified 07/08/20 12:44 surgical tape Allergy Severe Hives Uncoded 07/08/20 12:44 Home Meds: Home Meds Albuterol [Ventolin HFA] 2 puff PO Q4H PRN MDD 6 07/23/18 [History] Fluticasone/Vilanterol [Breo Ellipta 200-25 MCG Inhalation Kit] 1 puff PO DAILY 07/23/18 [History] Topiramate 200 mg PO DAILY PRN 07/23/18 [History] Pantoprazole Sodium [Protonix] 40 mg PO DAILY 01/20/19 [History] Baclofen 10 mg PO BID PRN 07/24/19 [History] DULoxetine [Cymbalta] 90 mg PO DAILY 07/24/19 [History] Levothyroxine [Synthroid] 100 mcg PO SUTUTHSA 07/24/19 [History] Levothyroxine [Synthroid] 150 mcg PO MOWEFR 07/24/19 [History] Montelukast [Singulair] 10 mg PO DAILY 07/24/19 [History] amLODIPine [Norvasc] 5 mg PO DAILY 07/24/19 [History] busPIRone [Buspar] 7.5 mg PO BID 07/24/19 [History] Acetaminophen/Codeine [Tylenol with Codeine No.3 300MG/30MG] 1 tab PO Q4H PRN #18 tab 07/08/20 [Rx] Penicillin V Potassium [Veetids] 500 mg PO Q6H 10 Days #40 tab 07/08/20 [Rx] Past Medical History HEENT History: Reports: Impaired Vision Cardiovascular History: Reports: High Cholesterol, Hypertension, SOB on Exertion Respiratory History: Reports: Asthma, COPD Gastrointestinal History: Reports: GERD, Other (See Below) Other Gastrointestinal History: Stomach ulcers Genitourinary History: Reports: Other (See Below) Other Genitourinary History: Renal insufficiency Musculoskeletal History: Reports: Arthritis, Fibromyalgia Neurological History: Reports: Migraines, Other (See Below) Other Neuro History: Low back pain Psychiatric History: Reports: Anxiety, Depression, Other (See Below) Other Psychiatric History: Former ETOH abuse Endocrine/Metabolic History: Reports: Hypothyroidism, Obesity/BMI 30+, Vitamin D Deficiency Other Endocrine/Metabolic History: Thyroid nodules Hematologic History: Reports: Blood Transfusion(s) Immunologic History: Reports: None Oncologic (Cancer) History: Reports: Cervix, Thyroid Other Dermatologic History: Skin tags - Past Surgical History Head Surgeries/Procedures: Reports: None HEENT Surgical History: Reports: None Cardiovascular Surgical History: Reports: None Respiratory Surgical History: Reports: None GI Surgical History: Reports: Cholecystectomy, EGD Female Surgical History: Reports: Hysterectomy Other Endocrine Surgeries/Procedures: Total thyroidectomy Neurological Surgical History: Reports: None Other Musculoskeletal Surgeries/Procedures:: Left partial knee arthroplasty, right total knee arthroplasty Oncologic Surgical History: Reports: None Dermatological Surgical History: Reports: None Social & Family History - Family History Family Medical History: Noncontributory - Tobacco Use Smoking Status *Q: Current Every Day Smoker Years of Tobacco use: 40 Packs/Tins Daily: 0.5 - Caffeine Use Caffeine Use: Reports: Coffee - Recreational Drug Use Recreational Drug Use: No - Living Situation & Occupation Living situation: Reports: , with Spouse, with Family (Son) Occupation: Unemployed ED ROS ENT - Review of Systems Review Of Systems: Comprehensive ROS is negative, except as noted in HPI. ED EXAM, ENT - Physical Exam Exam: See Below Exam Limited By: No Limitations General Appearance: Alert, Mild Distress Mouth/Throat: Normal Gums, Normal Lips, Normal Oropharynx, Dental Pain (posterior portion of tooth #30 broken. No swelling of the jaw noted.) Respiratory/Chest: No Respiratory Distress, Lungs Clear, Normal Breath Sounds, No Accessory Muscle Use, Chest Non-Tender Cardiovascular: Normal Peripheral Pulses, Regular Rate, Rhythm, No Edema, No Gallop, No JVD, No Murmur, No Rub Neurological: Alert, Oriented, CN II-XII Intact, Normal Cognition, Normal Gait, Normal Reflexes, No Motor/Sensory Deficits Psychiatric: Normal Affect, Normal Mood Course - Vital Signs Last Recorded V/S: Last Vital Signs Temp 97.0 F 07/08/20 12:49 Pulse 81 07/08/20 12:49 Resp 20 07/08/20 12:49 BP 162/87 H 07/08/20 12:49 Pulse Ox 98 07/08/20 12:49 - Orders/Labs/Meds Orders: Active Orders 24 hr Category Date Time Status Acetaminophen/Codeine [Tylenol with Codeine No.3 300MG/ Med 07/08/20 13:12 Once 30MG] 1 tab PO ONETIME ONE Medication Orders Acetaminophen/Codeine Phosphate (Tylenol With Codeine No.3 300mg/30mg) 1 tab PO ONETIME ONE Stop: 07/08/20 13:13 Meds: Medications Generic Name Dose Route Start Last Admin Trade Name Freq PRN Reason Stop Dose Admin Acetaminophen/Codeine Phosphate 1 tab 07/08/20 13:12 Tylenol With Codeine No.3 300mg/30mg PO 07/08/20 13:13 ONETIME ONE Discontinued Medications Generic Name Dose Route Start Last Admin Trade Name Freq PRN Reason Stop Dose Admin Ketorolac Tromethamine 60 mg 07/08/20 13:11 Toradol IM 07/08/20 13:12 ONETIME ONE Penicillin V Potassium 500 mg 07/08/20 13:11 Veetids PO 07/08/20 13:12 ONETIME ONE Departure - Departure Time of Disposition: 13:15 Disposition: Home, Self-Care 01 Condition: Good Clinical Impression: Dental caries - Discharge Information *PRESCRIPTION DRUG MONITORING PROGRAM REVIEWED*: Yes *COPY OF PRESCRIPTION DRUG MONITORING REPORT IN PATIENT LAVERN: No Prescriptions: Acetaminophen/Codeine [Tylenol with Codeine No.3 300MG/30MG] 1 tab PO Q4H PRN #18 tab PRN Reason: Pain Penicillin V Potassium [Veetids] 500 mg PO Q6H 10 Days #40 tab Referrals: Kaylin Peterson MD [Primary Care Provider] - Additional Instructions: You were seen in the emergency department today for a pain to a broken tooth in your left lower jaw. While in the ER, you received an injection of Toradol and Tylenol with Codeine for pain. You also received your first dose to penicillin V which is an antibiotic. A prescription for Tylenol with codeine and penicillin V has been sent to [facility] in [facility]. Take these medications as prescribed. Do not work or drive for 12 hours after taking the Tylenol with codeine as it can be sedating. Recommend that you take ibuprofen routinely over the next couple days. For pain not relieved by this, you may use the Tylenol with codeine. It is important the you follow-up with a dentist as soon as possible as this pain will likely continue to recur if the tooth is not repaired. Return to ER as needed. Sepsis Event Note (ED) - Evaluation Sepsis Screening Result: No Definite Risk - Focused Exam Vital Signs: Vital Signs Temp Pulse Resp BP Pulse Ox 07/08/20 12:49 97.0 F 81 20 162/87 H 98 - My Orders Last 24 Hours: My Active Orders 07/08/20 13:12 Acetaminophen/Codeine [Tylenol with Codeine No.3 300MG/30MG] 1 tab PO ONETIME ONE - Assessment/Plan Last 24 Hours: My Active Orders 07/08/20 13:12 Acetaminophen/Codeine [Tylenol with Codeine No.3 300MG/30MG] 1 tab PO ONETIME ONE
== END 2020-07-08 13:45 | disposition home or self-care (01) ==
LOC: JD.ED 12:27
DX: K02.9 Dental caries, unspecified (principal); K03.81 Cracked tooth; I10 Essential (primary) hypertension; J44.9 Chronic obstructive pulmonary disease, unspecified; F41.9 Anxiety disorder, unspecified; F32.9 Major depressive disorder, single episode, unspecified; E03.9 Hypothyroidism, unspecified; E66.9 Obesity, unspecified; K21.9 Gastro-esophageal reflux disease without esophagitis; F17.210 Nicotine dependence, cigarettes, uncomplicated; Z88.4 Allergy status to anesthetic agent; Z90.710 Acquired absence of both cervix and uterus; Z90.49 Acquired absence of other specified parts of digestive tract; Z88.8 Allergy status to other drugs, medicaments and biological substances; Z91.09 Other allergy status, other than to drugs and biological substances; Z79.899 Other long term (current) drug therapy
CPT/HCPCS: 96372; 99282; A9270; J1885; 99283

== ENCOUNTER 2021-02-24 13:37 | Emergency (ER) | payer MEDICARE, MEDICAID ==
[2021-02-24] MEDS ORDERED: HYDROmorphone 1 MG/ML Syringe IM ONE (15:34)
--- NOTE | 2021-02-24 15:43 | EDM.PDOC ---
ED HPI GENERAL MEDICAL PROBLEM - General Chief Complaint: Lower Extremity Injury/Pain Stated Complaint: LT LEG PAIN /SWELLING Time Seen by Provider: 02/24/21 15:22 Source of Information: Reports: Patient, RN Notes Reviewed History Limitations: Reports: No Limitations, Uncooperative - History of Present Illness INITIAL COMMENTS - FREE TEXT/NARRATIVE: Patient is a 60-year-old female who presents to the ER for her left leg injury. Patient notes that she fell onto her knees last week Wednesday, February 19. She notes that since then she is having progressively more pain to the left knee/left lower leg/ankle area. She does appreciate quite a bit of bruising extending from just above her knee, down to her ankle on the anterior portion. Patient notes she has had a total knee replacement on the right, and a partial knee replacement to her left knee. There are some healed abrasions to her left knee. Patient notes she has been getting around okay but does have quite a bit of pain. States that her hip is sore, due to having to walk somewhat "funky" due to the pain in her leg. She has been using 8 tablets of Tylenol daily for the pain and takes a baby aspirin but takes no other blood thinners. Patient does have a history of fibromyalgia as well. States her pain is an 8 out of 10. She does have some numbness/tingling into her feet at times. Primary care provider is Dr. Faby Peterson. Patient denies any other sick-like symptoms, fever/chills, cough/shortness of breath, nausea/vomiting/diarrhea. Left Lower Leg Pain Score (Numeric/FACES): 8 - Related Data Allergies Allergy/AdvReac Type Severity Reaction Status Date / Time lidocaine Allergy Severe Hives Verified 02/24/21 14:17 surgical tape Allergy Severe Hives Uncoded 02/24/21 14:17 Home Meds: Home Meds Albuterol [Ventolin HFA] 2 puff PO Q4H PRN MDD 6 07/23/18 [History] Fluticasone/Vilanterol [Breo Ellipta 200-25 MCG Inhalation Kit] 1 puff PO DAILY 07/23/18 [History] Topiramate 200 mg PO DAILY PRN 07/23/18 [History] Pantoprazole Sodium [Protonix] 40 mg PO DAILY 01/20/19 [History] Levothyroxine [Synthroid] 100 mcg PO SUTUTHSA 07/24/19 [History] Levothyroxine [Synthroid] 150 mcg PO MOWEFR 07/24/19 [History] amLODIPine [Norvasc] 5 mg PO DAILY 07/24/19 [History] Acetaminophen/HYDROcodone [[place] 325-5 MG] 1 tab PO Q6H PRN #12 tablet 02/24/21 [Rx] Pregabalin [Lyrica] 225 mg PO TID 02/24/21 [History] Past Medical History HEENT History: Reports: Impaired Vision Cardiovascular History: Reports: High Cholesterol, Hypertension, SOB on Exertion Respiratory History: Reports: Asthma, COPD Gastrointestinal History: Reports: GERD, Other (See Below) Other Gastrointestinal History: Stomach ulcers Genitourinary History: Reports: Other (See Below) Other Genitourinary History: Renal insufficiency Musculoskeletal History: Reports: Arthritis, Fibromyalgia Neurological History: Reports: Migraines, Other (See Below) Other Neuro History: Low back pain Psychiatric History: Reports: Anxiety, Depression, Other (See Below) Other Psychiatric History: Former ETOH abuse Endocrine/Metabolic History: Reports: Hypothyroidism, Obesity/BMI 30+, Vitamin D Deficiency Other Endocrine/Metabolic History: Thyroid nodules Hematologic History: Reports: Blood Transfusion(s) Immunologic History: Reports: None Oncologic (Cancer) History: Reports: Cervix, Thyroid Other Dermatologic History: Skin tags - Past Surgical History GI Surgical History: Reports: Cholecystectomy, EGD Female Surgical History: Reports: Hysterectomy Endocrine Surgical History: Reports: Thyroidectomy Other Endocrine Surgeries/Procedures: Total thyroidectomy Neurological Surgical History: Reports: Lumbar Spine Other Musculoskeletal Surgeries/Procedures:: Left partial knee arthroplasty, right total knee arthroplasty Social & Family History - Family History Family Medical History: No Pertinent Family History - Tobacco Use Tobacco Use Status *Q: Current Every Day Tobacco User Years of Tobacco use: 40 Packs/Tins Daily: 0.5 - Caffeine Use Caffeine Use: Reports: Coffee - Recreational Drug Use Recreational Drug Use: No - Living Situation & Occupation Living situation: Reports: , with Spouse, with Family (Son) Occupation: Unemployed Review of Systems - Review of Systems Review Of Systems: Comprehensive ROS is negative, except as noted in HPI. ED EXAM, GENERAL - Physical Exam Exam: See Below Exam Limited By: No Limitations General Appearance: Alert, WD/WN, No Apparent Distress Respiratory/Chest: No Respiratory Distress, Lungs Clear, Normal Breath Sounds, No Accessory Muscle Use, Chest Non-Tender Cardiovascular: Normal Peripheral Pulses, Regular Rate, Rhythm, No Edema Peripheral Pulses: 2+: Dorsalis Pedis (L), Dorsalis Pedis (R) Extremities: Normal Capillary Refill, Limited Range of Motion (of left leg d/t pain) Neurological: Alert, Oriented, Normal Cognition, No Motor/Sensory Deficits Psychiatric: Normal Affect, Normal Mood Skin Exam: Warm, Dry, Intact, No Rash, Ecchymosis (on anterior portion of left lower leg, extends about 2 inches above knee and travels all the way down to her ankle. There is a moderate amount of swelling appreciated.) Course - Vital Signs Last Recorded V/S: Last Vital Signs Temp 98.1 F 02/24/21 14:13 Pulse 95 02/24/21 14:13 Resp 16 02/24/21 14:13 BP 136/91 H 02/24/21 14:13 Pulse Ox 96 02/24/21 14:13 - Orders/Labs/Meds Meds: Medications Discontinued Medications Generic Name Dose Route Start Last Admin Trade Name Josefa PRN Reason Stop Dose Admin Hydromorphone HCl 1 mg 02/24/21 15:34 02/24/21 16:09 Hydromorphone 1 Mg/Ml Syringe IM 02/24/21 15:35 1 mg ONETIME ONE Administration - Re-Assessments/Exams Free Text/Narrative Re-Assessment/Exam: 02/24/21 15:42 Patient presents to the ER for her left leg injury. We will go ahead and get some x-rays of her hip/pelvis, knee and ankle for evaluation. She was quite worried about the possibility of a blood clot, so have ordered ultrasound as well. Patient does have extensive bruising all the way down her anterior lower leg. She will be given 1 mg IM Dilaudid for pain management. 02/24/21 16:34 X-rays demonstrate no acute fractures or bony abnormalities of the hip/pelvis, knee/ankle. Ultrasound is still pending at this time. 02/24/21 16:49 The patient's ultrasound demonstrates no sign of an acute DVT. We will go ahead and discharge patient home, have her leg Madan wrapped up to the mid thigh. Patient states she has a cane and a walker at home for ambulation. We will send her a short prescription of pain medication for ongoing pain management. Departure - Departure Time of Disposition: 16:51 Disposition: Home, Self-Care 01 Condition: Good Clinical Impression: Left leg pain Traumatic hematoma of lower leg Qualifiers: Encounter type: initial encounter Laterality: left Qualified Code(s): S80.12XA - Contusion of left lower leg, initial encounter - Discharge Information *PRESCRIPTION DRUG MONITORING PROGRAM REVIEWED*: Yes *COPY OF PRESCRIPTION DRUG MONITORING REPORT IN PATIENT LAVERN: No Instructions: Pain Medicine Instructions, [id number] Referrals: Kaylin Peterson MD [Primary Care Provider] - Forms: ED Department Discharge Additional Instructions: You were evaluated in the ER today for your left leg injury. X-rays were taken of your hip, knee, ankle and showed no acute fracture or other bony abnormalities. Ultrasound was also performed and demonstrated no blood clot or DVT to the leg. Your leg was Madan wrapped, due to the swelling, please try to keep this in place as much as possible during the day, you may have this off at night. Please utilize your cane and/or walker for ongoing ambulation over the next few days. You were given a prescription for a strong pain medication, hydrocodone/acetaminophen 5/325 mg, please take 1 tab every 6 hours as needed for pain not relieved by Tylenol or ibuprofen alone. Please note this medication does contain Tylenol in it, so do not take more than 4000 mg in a 24- hour time span. These medications can be addictive, so please take as few as possible to achieve adequate pain control. These meds can also be quite constipating, recommend that you increase your oral fluid intake and take a stool softener like MiraLAX while taking these medications. Do not drive while taking this medication. This medication was electronically sent to the [facility] located in the [place]. Please return to the ER at any time if your symptoms change or worsen. Sepsis Event Note (ED) - Evaluation Sepsis Screening Result: No Definite Risk - Focused Exam Vital Signs: Vital Signs Temp Pulse Resp BP Pulse Ox 02/24/21 14:13 98.1 F 95 16 136/91 H 96
--- NOTE | 2021-02-24 16:17 | CR ---
Left knee: 4 views of the left knee were obtained. Comparison: No prior knee study is available. Medial hemiarthroplasty is seen. Minimal osteophytes are noted off the lateral joint. No joint effusion is seen. No acute fracture, dislocation or other bony abnormality is appreciated. Impression: 1. Medial hemiarthroplasty. 2. Small lateral osteophytes. 3. No acute abnormality is appreciated. Diagnostic code #2
--- NOTE | 2021-02-24 16:18 | CR ---
Left ankle: 4 views left ankle were obtained. Comparison: No prior ankle study. Plantar spur is seen. Small spur is noted at the attachment of the Achilles tendon to the calcaneus. Small bony density is noted off the inferior medial malleolus compatible with old avulsion injury which is nonhealed. Ankle mortise is symmetric. Soft tissue swelling appears to be present laterally. No acute fracture, dislocation or other bony abnormality is appreciated. Impression: 1. Findings as noted above. 2. No acute osseous finding is seen. Diagnostic code #2
--- NOTE | 2021-02-24 16:18 | CR ---
Pelvis and left hip: AP view of the pelvis was obtained as well as AP and frog-leg lateral views of the left hip. Mild joint space narrowing is noted medially within both hips. Sacroiliac joints are unremarkable. Prior lumbar spine surgery is seen. No acute fracture, dislocation or other bony abnormality is appreciated. Impression: 1. Mild medial joint space narrowing within both hips. 2. Prior lumbar spine surgery. 3. No acute abnormality is appreciated. Diagnostic code #2
--- NOTE | 2021-02-24 16:43 | US ---
Left lower extremity deep venous ultrasound: Duplex and color Doppler evaluation was obtained of the left common femoral, proximal greater saphenous, superficial femoral, popliteal, posterior tibial and peroneal veins. Right common femoral vein was also evaluated. Comparison: No prior venous imaging is available. Findings: Normal phasic flow, augmentation and compression is seen. Impression: 1. No findings of deep venous thrombosis within the left lower extremity or within the right common femoral vein. Diagnostic code #1
== END 2021-02-24 17:05 | disposition home or self-care (01) ==
LOC: JD.ED 13:37
DX: S80.12XA Contusion of left lower leg, initial encounter (principal); I10 Essential (primary) hypertension; J44.9 Chronic obstructive pulmonary disease, unspecified; K21.9 Gastro-esophageal reflux disease without esophagitis; E03.9 Hypothyroidism, unspecified; E66.9 Obesity, unspecified; G43.909 Migraine, unspecified, not intractable, without status migrainosus; Z79.899 Other long term (current) drug therapy; Z68.42 Body mass index [BMI] 45.0-49.9, adult; Z88.4 Allergy status to anesthetic agent; Z91.048 Other nonmedicinal substance allergy status; Z72.0 Tobacco use; W18.30XA Fall on same level, unspecified, initial encounter
CPT/HCPCS: 73502; 73564; 73610; 93971; 96372; 99284; J1170; 99283

== ENCOUNTER 2022-09-03 11:56 | Emergency (ER) | payer MEDICARE, MEDICAID ==
[2022-09-03] MEDS ORDERED: Ketorolac 60 MG/2 ML SDV IM ONE (13:23)
== END 2022-09-03 15:03 | disposition home or self-care (01) ==
LOC: JD.ED 11:56
DX: M54.6 Pain in thoracic spine (principal); K21.9 Gastro-esophageal reflux disease without esophagitis; I10 Essential (primary) hypertension; F17.210 Nicotine dependence, cigarettes, uncomplicated; E66.9 Obesity, unspecified; Z68.42 Body mass index [BMI] 45.0-49.9, adult; Z88.4 Allergy status to anesthetic agent; Z91.048 Other nonmedicinal substance allergy status; Z79.899 Other long term (current) drug therapy; Z90.49 Acquired absence of other specified parts of digestive tract
CPT/HCPCS: 72125; 72128; 96372; 99283; J1885; 99284

== ENCOUNTER 2022-09-09 12:51 | Emergency (ER) | payer MEDICARE, MEDICAID ==
[2022-09-09] MEDS ORDERED: Gabapentin 100 MG Cap PO ONE (13:32)
[2022-09-09] MEDS ORDERED: valACYclovir 1,000 MG Tab PO ONE (13:32)
[2022-09-09] MEDS ORDERED: Acetaminophen/HYDROcodone 325-5 MG Tab PO ONE (13:33)
== END 2022-09-09 14:14 | disposition home or self-care (01) ==
LOC: JD.ED 12:51
DX: B02.9 Zoster without complications (principal); I10 Essential (primary) hypertension; E66.9 Obesity, unspecified; Z68.41 Body mass index [BMI] 40.0-44.9, adult; Z91.048 Other nonmedicinal substance allergy status; Z88.4 Allergy status to anesthetic agent; Z79.899 Other long term (current) drug therapy; Z90.49 Acquired absence of other specified parts of digestive tract; Z90.710 Acquired absence of both cervix and uterus
CPT/HCPCS: 99282; A9270

== ENCOUNTER 2025-09-18 11:47 | Emergency (ER) | payer MEDICARE, MEDICAID ==
[2025-09-18] MEDS: Rabies Immune Globulin/PF (HyperRAB) 300 UNIT/ML 5 ML SDV IM ONE (12:54)
[2025-09-18] MEDS: Rabies Vaccine (Avian) 2.5 Unit Inj Kit IM ONE (12:55)
== END 2025-09-18 13:35 | disposition home or self-care (01) ==
LOC: JD.ED 11:47
DX: Z23 Encounter for immunization (principal); I10 Essential (primary) hypertension; E78.00 Pure hypercholesterolemia, unspecified; J45.909 Unspecified asthma, uncomplicated; E03.9 Hypothyroidism, unspecified; Z88.8 Allergy status to other drugs, medicaments and biological substances; Z79.899 Other long term (current) drug therapy; Z90.49 Acquired absence of other specified parts of digestive tract; Z90.710 Acquired absence of both cervix and uterus
CPT/HCPCS: 90375; 90471; 90675; 96372; 99281-25; 99283